=== PATIENT | female | born 1955 | race Caucasian/White ===

== ENCOUNTER 2020-08-30 13:11 | Observation (INO) | payer OTHER ==
[2020-08-30] MEDS ORDERED: Sodium Chloride 0.9% 1000 ML 1,000 ML IV SCH ×2 (13:45→15:15)
[2020-08-30 14:17] LABS: Absolute Neutrophil Ct (ANC) 4.21 (1.4-6.9); BASOPHIL % 0.4 % (0.0-0.4); Basophil (Absolute #) 0.03 (0-0.4); Eosinophil % 0.7 % (0.00-5.0); Eosinophil (Absolute #) 0.05 (0-0.5); Hematocrit 42.3 % (35-47); Hemoglobin 14.2 gm/dl (12.0-16.0); Lymphocyte (Absolute #) 2.05 (1.0-4.6); Lymphocytes % 28.8 % (24.0-44.0); Mean Corpuscular Hemoglobin 30.9 pg (26-32); Mean Corpuscular Hgb Concent. 33.6 g/dl (32-36); Mean Platelet Volume 9.7 fl (7.5-11.0); Monocyte (Absolute #) 0.77 (0.0-1.3); Monocytes % 10.8 % (0.0-12.0); Neutrophil % 59.3 % (36.0-66.0); Platelet Count 310 K/mm3 (150-450); Red Cell Distribution Width 12.4 % (11.5-14.0); White Blood Count 7.1 K/mm3 (4.0-10.5)
[2020-08-30 14:28] LABS: ALBUMIN 4.6 g/dL (3.5-5.0); ALKALINE PHOSPHATASE 98 U/L (38-126); ANION GAP 12.9 MEQ/L (5-15); BLOOD UREA NITROGEN 10 mg/dL (7-17); CHLORIDE 96 mmol/L (98-107); Carbon Dioxide 27 mmol/L (22-30); Creatinine 1 0.52 mg/dL (0.52-1.04); EST GLOMERULAR FILTRATION RATE > 60.0 ML/MIN; Glucose 161 mg/dL (74-106); MAGNESIUM 1.9 mg/dL (1.6-2.3); Potassium 3.6 mmol/L (3.5-5.1); SGOT/AST 28 U/L (14-36); SGPT/ALT 22 U/L (0-35); SODIUM 132 mmol/L (137-145); Total Protein 7.6 g/dL (6.3-8.2)
--- NOTE | 2020-08-30 14:28 | ERPHSYRPT ---
- History of Present Illness Time Seen by Provider: 08/30/20 13:25 Source: patient Exam Limitations: no limitations Patient Subjective Stated Complaint: Confusion Triage Nursing Assessment: Patient ambulated back to ED and transferred self to bed. Patient A+O X3. Patient's skin pink, warm and dry. Patient states around 12 her right eye started twitching then she became shaky. Patient stated she ate lunch and returned back to work and was having a hard time remebering things. Her co-workers noticed and brought her to ED. Patient states she is having trouble remembering things right now. Patient states she found a tick on her right side and thought she had got it out of skin. Patient has tick embedded in skin on right side. Patient denies dizziness, SOB or any pain. Blood sugar noted to be 165. Physician History: Patient is a 65-year-old female presents to our emergency department for evaluation. Patient states that she was at work. She felt her right eye twitch. Patient went to have lunch. No difficulties eating or swallowing. Upon arrival patient states she was having trouble with her memory. Patient states she was having trouble finding words. She had no numbness tingling or weakness. No change in gait. Her speech was not slurred. No facial weakness or drooping. Patient does note that she recently found a tick on her right flank. The tick was removed. Patient concerned that her symptoms may be related to her tick. No chest pain or shortness of breath. No nausea vomiting or diaphoresis. Patient otherwise asymptomatic. Patient ambulatory to our ED. No change in patient's gait. Patient otherwise healthy. She has had her thyroid checked on the past and states that that was normal. Patient voices no other complaints or concerns at this time. Patient states her symptoms have now resolved. Timing/Duration: today Severity: mild Modifying Factors: Improves With: nothing Associated Symptoms: denies symptoms Allergies/Adverse Reactions: No Known Drug Allergies Allergy (Unverified 08/30/20 13:19) Home Medications: Lisinopril/Hydrochlorothiazide [Lisinopril-Hctz 10-12.5 mg Tab] 1 each PO DAILY 08/30/20 [History] Multivitamin 1 each PO BID 08/30/20 [History] Hx Influenza Vaccination/Date Given: Yes Hx Pneumococcal Vaccination/Date Given: No Immunizations Up to Date: Yes Travel Risk - International Travel Have you traveled outside of the country in past 3 weeks: No - Coronavirus Screening Are you exhibiting any of the following symptoms?: No Close contact with a COVID-19 positive Pt in past 14-21 Days: No - Vaccine Status Have you recieved a Covid-19 vaccination: Yes Loader Demolder: Pfizer - Vaccination Dates Date of 2cond Vaccination (if applicable): 06/20/2020 - Review of Systems Constitutional: No Symptoms, No Fever, No Chills Eyes: No Symptoms Ears, Nose, & Throat: No Symptoms Respiratory: No Symptoms, No Cough, No Dyspnea Cardiac: No Symptoms, No Chest Pain, No Edema, No Syncope Abdominal/Gastrointestinal: No Symptoms, No Abdominal Pain, No Nausea, No Vomiting, No Diarrhea Genitourinary Symptoms: No Symptoms, No Dysuria Musculoskeletal: No Symptoms, No Back Pain, No Neck Pain Skin: No Symptoms, No Rash Neurological: No Symptoms, No Dizziness, No Focal Weakness, No Sensory Changes Psychological: No Symptoms Endocrine: No Symptoms Hematologic/Lymphatic: No Symptoms Immunological/Allergic: No Symptoms All Other Systems: Reviewed and Negative - Past Medical History Pertinent Past Medical History: Yes Neurological History: No Pertinent History ENT History: No Pertinent History Cardiac History: Hypertension Respiratory History: No Pertinent History Endocrine Medical History: No Pertinent History Musculoskeletal History: No Pertinent History GI Medical History: No Pertinent History History: No Pertinent History Psycho-Social History: No Pertinent History Female Reproductive Disorders: No Pertinent History - Past Surgical History Past Surgical History: Yes Neuro Surgical History: No Pertinent History Cardiac: No Pertinent History Respiratory: No Pertinent History Gastrointestinal: No Pertinent History Genitourinary: No Pertinent History Musculoskeletal: No Pertinent History Female Surgical History: No Pertinent History - Social History Smoking Status: Never smoker Exposure to second hand smoke: No Drug Use: none Patient Lives Alone: No - Female History Hx Now: No - Nursing Vital Signs Nursing Vital Signs: Initial Vital Signs Temperature 98.1 F 08/30/20 13:22 Pulse Rate 122 H 08/30/20 13:22 Respiratory Rate 18 08/30/20 13:22 Blood Pressure 165/68 08/30/20 13:22 O2 Sat by Pulse Oximetry 100 08/30/20 13:22 Pain Scale Pain Intensity 0 - Physical Exam General Appearance: no apparent distress, alert Eye Exam: PERRL/EOMI, eyes nml inspection Ears, Nose, Throat Exam: normal ENT inspection, TMs normal, pharynx normal, moist mucous membranes Neck Exam: normal inspection, non-tender, supple, full range of motion Respiratory Exam: normal breath sounds, lungs clear, No respiratory distress Cardiovascular Exam: regular rate/rhythm, normal heart sounds, normal peripheral pulses Gastrointestinal/Abdomen Exam: soft, normal bowel sounds, No tenderness, No mass Back Exam: normal inspection, normal range of motion, No CVA tenderness, No vertebral tenderness Extremity Exam: normal inspection, normal range of motion, pelvis stable Neurologic Exam: alert, oriented x 3, cooperative, normal mood/affect, nml cerebellar function, nml station & gait, sensation nml, No motor deficits, No intoxicated appearance, No facial droop, No slurred speech, No aphasia, No dysarthria, No abnormal gait Skin Exam: normal color, warm, dry, No rash Lymphatic Exam: No adenopathy SpO2 Interpretation: normal SpO2: 98 O2 Delivery: Room Air - Course Nursing assessment & vital signs reviewed: Yes EKG Interpreted by Me: RATE (130), Sinus Tach, NORMAL AXIS, NORMAL INTERVALS - CT Exams Head CT Interpretation: Tele-radiologist Report (No acute intracranial abnormality.) Ordered Tests: Medication Summary Discontinued Medications Generic Name Dose Route Start Last Admin Trade Name Freq PRN Reason Stop Dose Admin Aspirin 324 mg 08/30/20 15:07 08/30/20 15:13 Baby Aspirin 81 Mg Chew PO 08/30/20 15:08 324 mg STAT ONE Administration Hydrochlorothiazide 12.5 mg 08/31/20 10:00 08/31/20 11:13 Hydrodiuril 25 Mg PO 09/30/20 09:59 12.5 mg DAILY АНДРЕЙ Administration Sodium Chloride 1,000 mls @ 50 mls/hr 08/30/20 13:45 08/30/20 14:01 Sodium Chloride 0.9% 1000 Ml IV 09/29/20 13:44 50 mls/hr .Q20H АНДРЕЙ Administration Sodium Chloride 1,000 mls @ 75 mls/hr 08/30/20 15:15 08/30/20 19:42 Sodium Chloride 0.9% 1000 Ml IV 09/29/20 15:14 Not Given .[id number] АНДРЕЙ Sodium Chloride 1,000 mls @ 75 mls/hr 08/30/20 17:50 08/31/20 05:31 Sodium Chloride 0.9% 1000 Ml IV 09/29/20 17:49 75 mls/hr .[id number] АНДРЕЙ Administration Lisinopril 10 mg 08/31/20 10:00 08/31/20 11:18 Zestril 10 Mg PO 09/30/20 09:59 10 mg DAILY АНДРЕЙ Administration Multivitamins Therapeutic 1 tab 08/31/20 10:00 08/31/20 11:18 Theragran Multivitamin PO 09/30/20 09:59 1 tab DAILY АНДРЕЙ Administration Lab/Rad Data: Laboratory Result Diagrams 08/30/20 13:30 08/30/20 13:30 Laboratory Results 08/30/20 08/30/20 08/30/20 Range/Units 16:54 15:54 13:30 WBC (4.0-10.5) K/mm3 RBC (4.1-5.4) M/mm3 Hgb (12.0-16.0) gm/dl Hct (35-47) % MCV (78-100) fl MCH (26-32) pg MCHC (32-36) g/dl RDW (11.5-14.0) % Plt Count (150-450) K/mm3 MPV (7.5-11.0) fl Gran % (36.0-66.0) % Eos # (Auto) (0-0.5) Absolute Lymphs (auto) (1.0-4.6) Absolute Monos (auto) (0.0-1.3) Lymphocytes % (24.0-44.0) % Monocytes % (0.0-12.0) % Eosinophils % (0.00-5.0) % Basophils % (0.0-0.4) % Absolute Granulocytes (1.4-6.9) Basophils # (0-0.4) Sodium (137-145) mmol/L Potassium (3.5-5.1) mmol/L Chloride (98-107) mmol/L Carbon Dioxide (22-30) mmol/L Anion Gap (5-15) MEQ/L BUN (7-17) mg/dL Creatinine (0.52-1.04) mg/dL Estimated GFR ML/MIN Glucose (74-106) mg/dL POC Glucometer (74 to 106) mg/dL Calcium (8.4-10.2) mg/dL Magnesium (1.6-2.3) mg/dL Total Bilirubin (0.2-1.3) mg/dL AST (14-36) U/L ALT (0-35) U/L Alkaline Phosphatase (38-126) U/L Troponin I < 0.012 < 0.012 (0.000-0.034) ng/mL Serum Total Protein (6.3-8.2) g/dL Albumin (3.5-5.0) g/dL Influenza Type A Ag NEGATIVE (NEGATIVE) Influenza Type B Ag NEGATIVE (NEGATIVE) RSV (PCR) NEGATIVE (Negative) SARS-CoV-2 (PCR) NEGATIVE (NEGATIVE) 08/30/20 08/30/20 08/30/20 Range/Units 13:30 13:30 13:30 WBC 7.1 (4.0-10.5) K/mm3 RBC 4.60 (4.1-5.4) M/mm3 Hgb 14.2 (12.0-16.0) gm/dl Hct 42.3 (35-47) % MCV 92.0 (78-100) fl MCH 30.9 (26-32) pg MCHC 33.6 (32-36) g/dl RDW 12.4 (11.5-14.0) % Plt Count 310 (150-450) K/mm3 MPV 9.7 (7.5-11.0) fl Gran % 59.3 (36.0-66.0) % Eos # (Auto) 0.05 (0-0.5) Absolute Lymphs (auto) 2.05 (1.0-4.6) Absolute Monos (auto) 0.77 (0.0-1.3) Lymphocytes % 28.8 (24.0-44.0) % Monocytes % 10.8 (0.0-12.0) % Eosinophils % 0.7 (0.00-5.0) % Basophils % 0.4 (0.0-0.4) % Absolute Granulocytes 4.21 (1.4-6.9) Basophils # 0.03 (0-0.4) Sodium 132 L (137-145) mmol/L Potassium 3.6 (3.5-5.1) mmol/L Chloride 96 L (98-107) mmol/L Carbon Dioxide 27 (22-30) mmol/L Anion Gap 12.9 (5-15) MEQ/L BUN 10 (7-17) mg/dL Creatinine 0.52 (0.52-1.04) mg/dL Estimated GFR > 60.0 ML/MIN Glucose 161 H (74-106) mg/dL POC Glucometer 159 H (74 to 106) mg/dL Calcium 10.0 (8.4-10.2) mg/dL Magnesium 1.9 (1.6-2.3) mg/dL Total Bilirubin 0.60 (0.2-1.3) mg/dL AST 28 (14-36) U/L ALT 22 (0-35) U/L Alkaline Phosphatase 98 (38-126) U/L Troponin I (0.000-0.034) ng/mL Serum Total Protein 7.6 (6.3-8.2) g/dL Albumin 4.6 (3.5-5.0) g/dL Influenza Type A Ag (NEGATIVE) Influenza Type B Ag (NEGATIVE) RSV (PCR) (Negative) SARS-CoV-2 (PCR) (NEGATIVE) 08/30/20 Range/Units 08:00 WBC (4.0-10.5) K/mm3 RBC (4.1-5.4) M/mm3 Hgb (12.0-16.0) gm/dl Hct (35-47) % MCV (78-100) fl MCH (26-32) pg MCHC (32-36) g/dl RDW (11.5-14.0) % Plt Count (150-450) K/mm3 MPV (7.5-11.0) fl Gran % (36.0-66.0) % Eos # (Auto) (0-0.5) Absolute Lymphs (auto) (1.0-4.6) Absolute Monos (auto) (0.0-1.3) Lymphocytes % (24.0-44.0) % Monocytes % (0.0-12.0) % Eosinophils % (0.00-5.0) % Basophils % (0.0-0.4) % Absolute Granulocytes (1.4-6.9) Basophils # (0-0.4) Sodium (137-145) mmol/L Potassium (3.5-5.1) mmol/L Chloride (98-107) mmol/L Carbon Dioxide (22-30) mmol/L Anion Gap (5-15) MEQ/L BUN (7-17) mg/dL Creatinine (0.52-1.04) mg/dL Estimated GFR ML/MIN Glucose (74-106) mg/dL POC Glucometer (74 to 106) mg/dL Calcium (8.4-10.2) mg/dL Magnesium (1.6-2.3) mg/dL Total Bilirubin (0.2-1.3) mg/dL AST (14-36) U/L ALT (0-35) U/L Alkaline Phosphatase (38-126) U/L Troponin I < 0.012 (0.000-0.034) ng/mL Serum Total Protein (6.3-8.2) g/dL Albumin (3.5-5.0) g/dL Influenza Type A Ag (NEGATIVE) Influenza Type B Ag (NEGATIVE) RSV (PCR) (Negative) SARS-CoV-2 (PCR) (NEGATIVE) - Progress Progress: improved Progress Note: Patient is 65-year-old female presents to our with possible TIA. Initial work- up negative. CT head negative. Patient also mentions that she has observed a tick bite. In light of her symptomology Case discussed with Dr. Joyce who accepts admission to observation for further work-up. MRI/MRA ordered for the morning. Aspirin IV fluids administered. Plan of care discussed with patient. She agrees to admission to [facility] for further evaluation and treatment. 09/02/20 04:57 09/02/20 04:59 Discussed with : Bryan Will see patient in: hospital (observation) Counseled pt/family regarding: lab results, diagnosis, rad results - Departure Departure Disposition: Observation Clinical Impression: TIA (transient ischemic attack), Hyponatremia Tick bite Qualifiers: Encounter type: initial encounter Qualified Code(s): W57.XXXA - Bitten or stung by nonvenomous insect and other nonvenomous arthropods, initial encounter Condition: Stable Critical Care Time: No
--- NOTE | 2020-08-30 14:49 | XRAY ---
Exam: CT of the head without IV contrast from 08/30/2020. CTDI: 53.92 mGy Comparison: None. Indication: 65-year-old female with memory loss, confusion. Right eye twitching. Technique: Non-IV contrast axial images were obtained through the brain. Reconstructed coronal and sagittal images were created and reviewed. Findings: The ventricles appear of normal size and configuration. No focal mass effect or midline shift is seen. No acute intracranial bleed or abnormal extra-axial fluid collection is seen. The siddiqui matter-white matter interfaces appear unremarkable. No low attenuation infarct is seen within a major cerebral or cerebellar artery distribution. There is mild prominence of the cortical sulci within the upper cerebral convexities. I believe this is essentially unremarkable for the patient's stated age. The calvarium of the skull appears intact. The visualized sinuses appear grossly clear. A small linear septation is seen within the posterior aspect of each maxillary sinus. No air-fluid levels are seen. The mastoid air cells are clear without effusion. The middle ear cavities appear grossly unremarkable. No gross abnormality of the orbits is seen. Impression: 1. No acute intracranial abnormality is seen. The brain appears unremarkable for the patient's stated age.
[2020-08-30] MEDS ORDERED: BABY ASPIRIN 81 MG CHEW PO ONE (15:07)
[2020-08-30 17:04] LABS: INFLUENZA A NEGATIVE (NEGATIVE); INFLUENZA B NEGATIVE (NEGATIVE); RESPIRATORY SYNCTIAL VIRUS NEGATIVE (Negative)
[2020-08-30] MEDS: Sodium Chloride 0.9% 1000 ML 1,000 ML IV SCH (19:42)
--- NOTE | 2020-08-30 20:27 | PCM.HP ---
History of Present Illness - Chief Complaint Chief Complaint: weaknessfor 1day History of Present Illness: is a 65 year old female.presents to our emergency department for evaluation. Patient states that she was at work. She felt her right eye twitch. Patient went to have lunch. No difficulties eating or swallowing. Upon arrival patient states she was having trouble with her memory. Patient states she was having trouble finding words. She had no numbness tingling or weakness. No change in gait. Her speech was not slurred. No facial weakness or drooping. Patient does note that she recently found a tick on her right flank. The tick was removed. Patient concerned that her symptoms may be related to her tick. No chest pain or shortness of breath. No nausea vomiting or diaphoresis. Patient otherwise asymptomatic. Patient ambulatory to our ED. No change in patient's gait. Patient otherwise healthy. She has had her thyroid checked on the past and states that that was normal. Patient voices no other complaints or concerns at this time. Patient states her symptoms have now resolved. - Review of Systems Constitutional: Weakness, No Fever, No Chills Eyes: No Symptoms Ears, Nose, & Throat: No Symptoms Respiratory: No Cough, No Short Of Breath Cardiac: No Chest Pain, No Edema, No Syncope Abdominal/Gastrointestinal: No Abdominal Pain, No Nausea, No Vomiting, No Diarrhea Genitourinary Symptoms: No Dysuria Musculoskeletal: No Back Pain, No Neck Pain Skin: No Rash Neurological: No Dizziness, No Focal Weakness, No Sensory Changes Psychological: No Symptoms Endocrine: No Symptoms Hematologic/Lymphatic: No Symptoms Immunological/Allergic: No Symptoms Medications & Allergies Home Medications: Home Medication List Lisinopril/Hydrochlorothiazide [Lisinopril-Hctz 10-12.5 mg Tab] 1 each PO DAILY 08/30/20 [History Confirmed 08/30/20] Multivitamin 1 each PO BID 08/30/20 [History Confirmed 08/30/20] Allergies/Adverse Reactions: Allergies Allergy/AdvReac Type Severity Reaction Status Date / Time No Known Drug Allergies Allergy Unverified 08/30/20 13:19 - Past Medical History Past Medical History: Yes Neurological History: No Pertinent History ENT History: No Pertinent History Cardiac History: Hypertension Respiratory History: No Pertinent History Endocrine Medical History: No Pertinent History Musculoskelatal History: Arthritis GI Medical History: No Pertinent History History: No Pertinent History Pyscho-Social History: No Pertinent History Reproductive Disorders: No Pertinent History - Female History Are you now?: No - Past Surgical History Past Surgical History: Yes Neuro Surgical History: No Pertinent History Cardiac History: No Pertinent History Respiratory Surgery: No Pertinent History GI Surgical History: No Pertinent History Genitourinary Surgical Hx: No Pertinent History Musculskeletal Surgical Hx: No Pertinent History Female Surgical History: Section, Tubal Ligation - Social History Smoking Status: Never smoker Exposure to second hand smoke: Yes (as a child) Alcohol: Daily Drug Use: none - Physical Exam Vital Signs: Vital Signs - 24 hr Temp Pulse Resp BP Pulse Ox 08/30/20 18:16 97 08/30/20 18:08 97.4 F 84 16 168/75 100 08/30/20 17:50 97.4 F 84 16 168/75 100 08/30/20 17:15 86 23 151/82 97 08/30/20 16:15 78 18 145/80 98 08/30/20 15:05 98 08/30/20 14:16 113 H 21 155/58 98 08/30/20 13:50 95 08/30/20 13:22 98.1 F 122 H 18 165/68 100 General Appearance: no apparent distress, alert Neurologic Exam: alert, oriented x 3, cooperative, normal mood/affect, nml cerebellar function, nml station & gait, sensation nml, No motor deficits Eye Exam: PERRL/EOMI, eyes nml inspection Ears, Nose, Throat Exam: normal ENT inspection, TMs normal, pharynx normal, moist mucous membranes Neck Exam: normal inspection, non-tender, supple, full range of motion Respiratory Exam: normal breath sounds, lungs clear, No respiratory distress Cardiovascular Exam: regular rate/rhythm, normal heart sounds, normal peripheral pulses Gastrointestinal/Abdomen Exam: soft, normal bowel sounds, No tenderness, No mass Back Exam: normal inspection, normal range of motion, No CVA tenderness, No vertebral tenderness Extremity Exam: normal inspection, normal range of motion, pelvis stable Skin Exam: normal color, warm, dry, No rash Lymphatic Exam: No adenopathy Results - Labs Lab/Micro Results: Lab Results-Last 24 Hours 08/30/20 08/30/20 08/30/20 Range/Units 13:30 13:30 13:30 WBC 7.1 (4.0-10.5) K/mm3 RBC 4.60 (4.1-5.4) M/mm3 Hgb 14.2 (12.0-16.0) gm/dl Hct 42.3 (35-47) % MCV 92.0 (78-100) fl MCH 30.9 (26-32) pg MCHC 33.6 (32-36) g/dl RDW 12.4 (11.5-14.0) % Plt Count 310 (150-450) K/mm3 MPV 9.7 (7.5-11.0) fl Gran % 59.3 (36.0-66.0) % Eos # (Auto) 0.05 (0-0.5) Absolute Lymphs (auto) 2.05 (1.0-4.6) Absolute Monos (auto) 0.77 (0.0-1.3) Lymphocytes % 28.8 (24.0-44.0) % Monocytes % 10.8 (0.0-12.0) % Eosinophils % 0.7 (0.00-5.0) % Basophils % 0.4 (0.0-0.4) % Absolute Granulocytes 4.21 (1.4-6.9) Basophils # 0.03 (0-0.4) Sodium 132 L (137-145) mmol/L Potassium 3.6 (3.5-5.1) mmol/L Chloride 96 L (98-107) mmol/L Carbon Dioxide 27 (22-30) mmol/L Anion Gap 12.9 (5-15) MEQ/L BUN 10 (7-17) mg/dL Creatinine 0.52 (0.52-1.04) mg/dL Estimated GFR > 60.0 ML/MIN Glucose 161 H (74-106) mg/dL POC Glucometer 159 H (74 to 106) mg/dL Calcium 10.0 (8.4-10.2) mg/dL Magnesium 1.9 (1.6-2.3) mg/dL Total Bilirubin 0.60 (0.2-1.3) mg/dL AST 28 (14-36) U/L ALT 22 (0-35) U/L Alkaline Phosphatase 98 (38-126) U/L Troponin I (0.000-0.034) ng/mL Serum Total Protein 7.6 (6.3-8.2) g/dL Albumin 4.6 (3.5-5.0) g/dL Influenza Type A Ag (NEGATIVE) Influenza Type B Ag (NEGATIVE) RSV (PCR) (Negative) SARS-CoV-2 (PCR) (NEGATIVE) 08/30/20 08/30/20 08/30/20 Range/Units 13:30 15:54 16:54 WBC (4.0-10.5) K/mm3 RBC (4.1-5.4) M/mm3 Hgb (12.0-16.0) gm/dl Hct (35-47) % MCV (78-100) fl MCH (26-32) pg MCHC (32-36) g/dl RDW (11.5-14.0) % Plt Count (150-450) K/mm3 MPV (7.5-11.0) fl Gran % (36.0-66.0) % Eos # (Auto) (0-0.5) Absolute Lymphs (auto) (1.0-4.6) Absolute Monos (auto) (0.0-1.3) Lymphocytes % (24.0-44.0) % Monocytes % (0.0-12.0) % Eosinophils % (0.00-5.0) % Basophils % (0.0-0.4) % Absolute Granulocytes (1.4-6.9) Basophils # (0-0.4) Sodium (137-145) mmol/L Potassium (3.5-5.1) mmol/L Chloride (98-107) mmol/L Carbon Dioxide (22-30) mmol/L Anion Gap (5-15) MEQ/L BUN (7-17) mg/dL Creatinine (0.52-1.04) mg/dL Estimated GFR ML/MIN Glucose (74-106) mg/dL POC Glucometer (74 to 106) mg/dL Calcium (8.4-10.2) mg/dL Magnesium (1.6-2.3) mg/dL Total Bilirubin (0.2-1.3) mg/dL AST (14-36) U/L ALT (0-35) U/L Alkaline Phosphatase (38-126) U/L Troponin I < 0.012 < 0.012 (0.000-0.034) ng/mL Serum Total Protein (6.3-8.2) g/dL Albumin (3.5-5.0) g/dL Influenza Type A Ag NEGATIVE (NEGATIVE) Influenza Type B Ag NEGATIVE (NEGATIVE) RSV (PCR) NEGATIVE (Negative) SARS-CoV-2 (PCR) NEGATIVE (NEGATIVE) - Radiology Impressions Radiology Exams & Impressions: Radiology Procedures Category Date Time Status HEAD WITHOUT CONTRAST [CT] Stat Exams 08/30/20 13:21 Completed MRA BRAIN WITHOUT CONTRAST [MRI] Routine Exams 08/31/20 08:00 Ordered MRI BRAIN W/O CONTRAST [MRI] Routine Exams 08/31/20 08:[address]/HEAD WITHOUT CONTRAST Exam: CT of the head without IV contrast from 08/30/2020. CTDI: 53.92 mGy Comparison: None. Indication: 65-year-old female with memory loss, confusion. Right eye twitching. Technique: Non-IV contrast axial images were obtained through the brain. Reconstructed coronal and sagittal images were created and reviewed. Findings: The ventricles appear of normal size and configuration. No focal mass effect or midline shift is seen. No acute intracranial bleed or abnormal extra-axial fluid collection is seen. The siddiqui matter-white matter interfaces appear unremarkable. No low attenuation infarct is seen within a major cerebral or cerebellar artery distribution. There is mild prominence of the cortical sulci within the upper cerebral convexities. I believe this is essentially unremarkable for the patient's stated age. The calvarium of the skull appears intact. The visualized sinuses appear grossly clear. A small linear septation is seen within the posterior aspect of each maxillary sinus. No air-fluid levels are seen. The mastoid air cells are clear without effusion. The middle ear cavities appear grossly unremarkable. No gross abnormality of the orbits is seen. Impression: 1. No acute intracranial abnormality is seen. The brain appears unremarkable for the patient's stated age. Assessment/Plan (1) TIA (transient ischemic attack) Current Visit: Yes Status: Acute Assessment & Plan: Chief Complaint Diagnosis TIA Allergies Allergy/AdvReac Type Severity Reaction Status Date / Time No Known Drug Allergies Allergy Unverified 08/30/20 13:19 Vital Signs (Last 24 hours) Temp Pulse Resp BP Pulse Ox 08/30/20 18:16 97 08/30/20 18:08 97.4 F 84 16 168/75 100 08/30/20 17:50 97.4 F 84 16 168/75 100 08/30/20 17:15 86 23 151/82 97 08/30/20 16:15 78 18 145/80 98 08/30/20 15:05 98 08/30/20 14:16 113 H 21 155/58 98 08/30/20 13:50 95 08/30/20 13:22 98.1 F 122 H 18 165/68 100 Home Medications Medication Instructions Recorded Confirmed Last Taken Type Lisinopril/Hydrochlorothiazide 1 each PO DAILY 08/30/20 08/30/20 08/30/20 07:00 History [Lisinopril-Hctz 10-12.5 mg Tab] Multivitamin 1 each PO BID 08/30/20 08/30/20 08/30/20 07:00 History Current Medications Generic Name Dose Route Start Last Admin Trade Name Freq PRN Reason Stop Dose Admin Sodium Chloride 1,000 mls @ 75 mls/hr 08/30/20 17:50 08/30/20 19:42 Sodium Chloride 0.9% 1000 Ml IV 09/29/20 17:49 Not Given .[id number] АНДРЕЙ Discontinued Medications Generic Name Dose Route Start Last Admin Trade Name Freq PRN Reason Stop Dose Admin Aspirin 324 mg 08/30/20 15:07 08/30/20 15:13 Baby Aspirin 81 Mg Chew PO 08/30/20 15:08 324 mg STAT ONE Administration Sodium Chloride 1,000 mls @ 50 mls/hr 08/30/20 13:45 08/30/20 14:01 Sodium Chloride 0.9% 1000 Ml IV 09/29/20 13:44 50 mls/hr .Q20H АНДРЕЙ Administration Sodium Chloride 1,000 mls @ 75 mls/hr 08/30/20 15:15 08/30/20 19:42 Sodium Chloride 0.9% 1000 Ml IV 09/29/20 15:14 Not Given .[id number] АНДРЕЙ Intake & Output (Last 24 hours) 08/28/20 08/29/20 08/30/20 08/31/20 11:59 11:59 11:59 11:59 Weight 60.9 kg Laboratory Results (Last 24 hours) 08/30/20 08/30/20 08/30/20 16:54 15:54 13:30 WBC RBC Hgb Hct MCV MCH MCHC RDW Plt Count MPV Gran % Eos # (Auto) Absolute Lymphs (auto) Absolute Monos (auto) Lymphocytes % Monocytes % Eosinophils % Basophils % Absolute Granulocytes Basophils # Sodium Potassium Chloride Carbon Dioxide Anion Gap BUN Creatinine Estimated GFR Glucose POC Glucometer Calcium Magnesium Total Bilirubin AST ALT Alkaline Phosphatase Troponin I < 0.012 < 0.012 Serum Total Protein Albumin Influenza Type A Ag NEGATIVE Influenza Type B Ag NEGATIVE RSV (PCR) NEGATIVE SARS-CoV-2 (PCR) NEGATIVE 08/30/20 08/30/20 08/30/20 13:30 13:30 13:30 WBC 7.1 RBC 4.60 Hgb 14.2 Hct 42.3 MCV 92.0 MCH 30.9 MCHC 33.6 RDW 12.4 Plt Count 310 MPV 9.7 Gran % 59.3 Eos # (Auto) 0.05 Absolute Lymphs (auto) 2.05 Absolute Monos (auto) 0.77 Lymphocytes % 28.8 Monocytes % 10.8 Eosinophils % 0.7 Basophils % 0.4 Absolute Granulocytes 4.21 Basophils # 0.03 Sodium 132 L Potassium 3.6 Chloride 96 L Carbon Dioxide 27 Anion Gap 12.9 BUN 10 Creatinine 0.52 Estimated GFR > 60.0 Glucose 161 H POC Glucometer 159 H Calcium 10.0 Magnesium 1.9 Total Bilirubin 0.60 AST 28 ALT 22 Alkaline Phosphatase 98 Troponin I Serum Total Protein 7.6 Albumin 4.6 Influenza Type A Ag Influenza Type B Ag RSV (PCR) SARS-CoV-2 (PCR) Orders (Last 24 hours) Category Date Time Status Bedrest with BRP/BSC ROUTINE Activity 08/30/20 17:50 Active Rn Rehabilitation STAT Care 08/30/20 13:43 Completed Code Status Order ROUTINE Care 08/30/20 17:50 Active EKG-ER Only STAT Care 08/30/20 13:43 Completed IV Care Q6H Care 08/30/20 17:50 Active IV Insertion STAT Care 08/30/20 13:[address] in Observation ROUTINE Care 08/30/20 17:50 Active Pulse Oximetry (ED) STAT Care 08/30/20 13:43 Completed Telemetry q6h Care 08/30/20 17:50 Active Heart-Healthy Diet Diet 08/30/20 Breakfast Active HEAD WITHOUT CONTRAST [CT] Stat Exams 08/30/20 13:21 Completed MRA BRAIN WITHOUT CONTRAST [MRI] Routine Exams 08/31/20 08:00 Ordered MRI BRAIN W/O CONTRAST [MRI] Routine Exams 08/31/20 08:00 Ordered CBC W DIFF AM.LAB Lab 08/31/20 04:00 Ordered CBC W DIFF Stat Lab 08/30/20 13:30 Completed CMP AM.LAB Lab 08/31/20 04:00 Ordered CMP Stat Lab 08/30/20 13:30 Completed MAGNESIUM Stat Lab 08/30/20 13:30 Completed POCT GLUCOSE Stat Lab 08/30/20 13:30 Completed TROPONIN Q3H Lab 08/30/20 08:00 Received TROPONIN Q3H Lab 08/30/20 13:30 Completed TROPONIN Q3H Lab 08/30/20 16:54 Completed TROPONIN Q3H Lab 08/30/20 22:45 Ordered TROPONIN Q3H Lab 08/31/20 01:45 Ordered Aspirin 81 gm Chew [Baby Aspirin 81 mg Chew] Med 08/30/20 15:07 Discontinued 324 mg PO STAT ONE NaCl 0.9% 1000 ml [Sodium Chloride 0.9% 1000 ML] 1,000 Med 08/30/20 13:45 Discontinued ml IV 50 mls/hr NaCl 0.9% 1000 ml [Sodium Chloride 0.9% 1000 ML] 1,000 Med 08/30/20 15:15 Discontinued ml IV 75 mls/hr NaCl 0.9% 1000 ml [Sodium Chloride 0.9% 1000 ML] 1,000 Med 08/30/20 17:50 Active ml IV 75 mls/hr Transfer Order Routine Transfer 08/30/20 Completed Code(s): G45.9 - TRANSIENT CEREBRAL ISCHEMIC ATTACK, UNSPECIFIED (2) Hyponatremia Current Visit: Yes Status: Acute Code(s): E87.1 - HYPO-OSMOLALITY AND HYPONATREMIA (3) Tick bite Current Visit: Yes Status: Acute Code(s): W57.XXXA - BIT/STUNG BY NONVENOM INSECT & OTH NONVENOM ARTHROPODS, INIT
[2020-08-31 04:45] VITALS: O2SAT 98
[2020-08-31 05:24] LABS: Absolute Neutrophil Ct (ANC) 3.57 (1.4-6.9); BASOPHIL % 0.5 % (0.0-0.4); Basophil (Absolute #) 0.03 (0-0.4); Eosinophil % 1.6 % (0.00-5.0); Eosinophil (Absolute #) 0.09 (0-0.5); Hematocrit 37.7 % (35-47); Hemoglobin 12.4 gm/dl (12.0-16.0); Lymphocyte (Absolute #) 1.43 (1.0-4.6); Lymphocytes % 24.8 % (24.0-44.0); Mean Cell Volume 94.3 fl (78-100); Mean Corpuscular Hgb Concent. 32.9 g/dl (32-36); Mean Platelet Volume 9.5 fl (7.5-11.0); Monocyte (Absolute #) 0.64 (0.0-1.3); Monocytes % 11.1 % (0.0-12.0); Platelet Count 260 K/mm3 (150-450); Red Cell Distribution Width 12.3 % (11.5-14.0); White Blood Count 5.8 K/mm3 (4.0-10.5)
[2020-08-31] MEDS: Sodium Chloride 0.9% 1000 ML 1,000 ML IV SCH (05:31)
[2020-08-31 05:56] LABS: ALBUMIN 3.5 g/dL (3.5-5.0); ALKALINE PHOSPHATASE 74 U/L (38-126); ANION GAP 10.4 MEQ/L (5-15); BLOOD UREA NITROGEN 11 mg/dL (7-17); CHLORIDE 104 mmol/L (98-107); Calcium 9.1 mg/dL (8.4-10.2); Carbon Dioxide 25 mmol/L (22-30); Creatinine 1 0.45 mg/dL (0.52-1.04); EST GLOMERULAR FILTRATION RATE > 60.0 ML/MIN; Glucose 89 mg/dL (74-106); Potassium 4.3 mmol/L (3.5-5.1); SGOT/AST 39 U/L (14-36); SGPT/ALT 19 U/L (0-35); SODIUM 135 mmol/L (137-145); Total Protein 6.1 g/dL (6.3-8.2)
--- NOTE | 2020-08-31 07:44 | PCM.NOTE ---
Date and Time: 08/31/20 0744 Subjective Assessment: doing better - Review of Systems Constitutional: No Fever, No Chills Eyes: No Symptoms Ears, Nose, & Throat: No Symptoms Respiratory: No Cough, No Short Of Breath Cardiac: No Chest Pain, No Edema, No Syncope Abdominal/Gastrointestinal: No Abdominal Pain, No Nausea, No Vomiting, No Diarrhea Genitourinary Symptoms: No Dysuria Musculoskeletal: No Back Pain, No Neck Pain Skin: No Rash Neurological: No Dizziness, No Focal Weakness, No Sensory Changes Psychological: No Symptoms Endocrine: No Symptoms Hematologic/Lymphatic: No Symptoms Immunological/Allergic: No Symptoms Objective Exam General Appearance: no apparent distress, alert Neurologic Exam: alert, oriented x 3, cooperative, normal mood/affect, nml cerebellar function, sensation nml, No motor deficits Skin Exam: normal color, warm, dry Eye Exam: PERRL, EOMI, eyes nml inspection Ears, Nose, Throat Exam: normal ENT inspection, pharynx normal, moist mucous membranes Neck Exam: normal inspection, non-tender, supple, full range of motion Respiratory Exam: normal breath sounds, lungs clear, No respiratory distress Cardiovascular Exam: regular rate/rhythm, normal heart sounds Gastrointestinal/Abdomen Exam: soft, No tenderness, No mass Extremity Exam: normal inspection, normal range of motion Back Exam: normal inspection, normal range of motion, No CVA tenderness, No vertebral tenderness Pelvic Exam: deferred Rectal Exam: deferred OBJECTIVE DATA Vital Signs: Vital Signs - 24 hr Temp Pulse Resp BP Pulse Ox 08/31/20 07:38 97.6 F 70 18 115/56 98 08/31/20 04:00 97.9 F 71 16 102/58 98 08/30/20 23:43 98.7 F 79 16 108/58 96 08/30/20 18:16 97 08/30/20 18:08 97.4 F 84 16 168/75 100 08/30/20 17:50 97.4 F 84 16 168/75 100 08/30/20 17:15 86 23 151/82 97 08/30/20 16:15 78 18 145/80 98 08/30/20 15:05 98 08/30/20 14:16 113 H 21 155/58 98 08/30/20 13:50 95 08/30/20 13:22 98.1 F 122 H 18 165/68 100 Pain Assessment - Last Documented Pain Intensity 0 Intake and Output: Intake & Output 08/28/20 08/29/20 08/30/20 08/31/20 11:59 11:59 11:59 11:59 Intake Total 965 Output Total 800 Balance 165 Weight 60.9 kg Lab Results: Lab Results-Last 24 Hours 08/30/20 08/30/20 08/30/20 Range/Units 08:00 13:30 13:30 WBC 7.1 (4.0-10.5) K/mm3 RBC 4.60 (4.1-5.4) M/mm3 Hgb 14.2 (12.0-16.0) gm/dl Hct 42.3 (35-47) % MCV 92.0 (78-100) fl MCH 30.9 (26-32) pg MCHC 33.6 (32-36) g/dl RDW 12.4 (11.5-14.0) % Plt Count 310 (150-450) K/mm3 MPV 9.7 (7.5-11.0) fl Gran % 59.3 (36.0-66.0) % Eos # (Auto) 0.05 (0-0.5) Absolute Lymphs (auto) 2.05 (1.0-4.6) Absolute Monos (auto) 0.77 (0.0-1.3) Lymphocytes % 28.8 (24.0-44.0) % Monocytes % 10.8 (0.0-12.0) % Eosinophils % 0.7 (0.00-5.0) % Basophils % 0.4 (0.0-0.4) % Absolute Granulocytes 4.21 (1.4-6.9) Basophils # 0.03 (0-0.4) Sodium (137-145) mmol/L Potassium (3.5-5.1) mmol/L Chloride (98-107) mmol/L Carbon Dioxide (22-30) mmol/L Anion Gap (5-15) MEQ/L BUN (7-17) mg/dL Creatinine (0.52-1.04) mg/dL Estimated GFR ML/MIN Glucose (74-106) mg/dL POC Glucometer 159 H (74 to 106) mg/dL Calcium (8.4-10.2) mg/dL Magnesium (1.6-2.3) mg/dL Total Bilirubin (0.2-1.3) mg/dL AST (14-36) U/L ALT (0-35) U/L Alkaline Phosphatase (38-126) U/L Troponin I < 0.012 (0.000-0.034) ng/mL Serum Total Protein (6.3-8.2) g/dL Albumin (3.5-5.0) g/dL Influenza Type A Ag (NEGATIVE) Influenza Type B Ag (NEGATIVE) RSV (PCR) (Negative) SARS-CoV-2 (PCR) (NEGATIVE) 08/30/20 08/30/20 08/30/20 Range/Units 13:30 13:30 15:54 WBC (4.0-10.5) K/mm3 RBC (4.1-5.4) M/mm3 Hgb (12.0-16.0) gm/dl Hct (35-47) % MCV (78-100) fl MCH (26-32) pg MCHC (32-36) g/dl RDW (11.5-14.0) % Plt Count (150-450) K/mm3 MPV (7.5-11.0) fl Gran % (36.0-66.0) % Eos # (Auto) (0-0.5) Absolute Lymphs (auto) (1.0-4.6) Absolute Monos (auto) (0.0-1.3) Lymphocytes % (24.0-44.0) % Monocytes % (0.0-12.0) % Eosinophils % (0.00-5.0) % Basophils % (0.0-0.4) % Absolute Granulocytes (1.4-6.9) Basophils # (0-0.4) Sodium 132 L (137-145) mmol/L Potassium 3.6 (3.5-5.1) mmol/L Chloride 96 L (98-107) mmol/L Carbon Dioxide 27 (22-30) mmol/L Anion Gap 12.9 (5-15) MEQ/L BUN 10 (7-17) mg/dL Creatinine 0.52 (0.52-1.04) mg/dL Estimated GFR > 60.0 ML/MIN Glucose 161 H (74-106) mg/dL POC Glucometer (74 to 106) mg/dL Calcium 10.0 (8.4-10.2) mg/dL Magnesium 1.9 (1.6-2.3) mg/dL Total Bilirubin 0.60 (0.2-1.3) mg/dL AST 28 (14-36) U/L ALT 22 (0-35) U/L Alkaline Phosphatase 98 (38-126) U/L Troponin I < 0.012 (0.000-0.034) ng/mL Serum Total Protein 7.6 (6.3-8.2) g/dL Albumin 4.6 (3.5-5.0) g/dL Influenza Type A Ag NEGATIVE (NEGATIVE) Influenza Type B Ag NEGATIVE (NEGATIVE) RSV (PCR) NEGATIVE (Negative) SARS-CoV-2 (PCR) NEGATIVE (NEGATIVE) 08/30/20 08/30/20 08/31/20 Range/Units 16:54 22:27 04:00 WBC 5.8 (4.0-10.5) K/mm3 RBC 4.00 L (4.1-5.4) M/mm3 Hgb 12.4 (12.0-16.0) gm/dl Hct 37.7 (35-47) % MCV 94.3 (78-100) fl MCH 31.0 (26-32) pg MCHC 32.9 (32-36) g/dl RDW 12.3 (11.5-14.0) % Plt Count 260 (150-450) K/mm3 MPV 9.5 (7.5-11.0) fl Gran % 62.0 (36.0-66.0) % Eos # (Auto) 0.09 (0-0.5) Absolute Lymphs (auto) 1.43 (1.0-4.6) Absolute Monos (auto) 0.64 (0.0-1.3) Lymphocytes % 24.8 (24.0-44.0) % Monocytes % 11.1 (0.0-12.0) % Eosinophils % 1.6 (0.00-5.0) % Basophils % 0.5 (0.0-0.4) % Absolute Granulocytes 3.57 (1.4-6.9) Basophils # 0.03 (0-0.4) Sodium (137-145) mmol/L Potassium (3.5-5.1) mmol/L Chloride (98-107) mmol/L Carbon Dioxide (22-30) mmol/L Anion Gap (5-15) MEQ/L BUN (7-17) mg/dL Creatinine (0.52-1.04) mg/dL Estimated GFR ML/MIN Glucose (74-106) mg/dL POC Glucometer (74 to 106) mg/dL Calcium (8.4-10.2) mg/dL Magnesium (1.6-2.3) mg/dL Total Bilirubin (0.2-1.3) mg/dL AST (14-36) U/L ALT (0-35) U/L Alkaline Phosphatase (38-126) U/L Troponin I < 0.012 < 0.012 (0.000-0.034) ng/mL Serum Total Protein (6.3-8.2) g/dL Albumin (3.5-5.0) g/dL Influenza Type A Ag (NEGATIVE) Influenza Type B Ag (NEGATIVE) RSV (PCR) (Negative) SARS-CoV-2 (PCR) (NEGATIVE) 08/31/20 Range/Units 04:00 WBC (4.0-10.5) K/mm3 RBC (4.1-5.4) M/mm3 Hgb (12.0-16.0) gm/dl Hct (35-47) % MCV (78-100) fl MCH (26-32) pg MCHC (32-36) g/dl RDW (11.5-14.0) % Plt Count (150-450) K/mm3 MPV (7.5-11.0) fl Gran % (36.0-66.0) % Eos # (Auto) (0-0.5) Absolute Lymphs (auto) (1.0-4.6) Absolute Monos (auto) (0.0-1.3) Lymphocytes % (24.0-44.0) % Monocytes % (0.0-12.0) % Eosinophils % (0.00-5.0) % Basophils % (0.0-0.4) % Absolute Granulocytes (1.4-6.9) Basophils # (0-0.4) Sodium 135 L (137-145) mmol/L Potassium 4.3 (3.5-5.1) mmol/L Chloride 104 (98-107) mmol/L Carbon Dioxide 25 (22-30) mmol/L Anion Gap 10.4 (5-15) MEQ/L BUN 11 (7-17) mg/dL Creatinine 0.45 L (0.52-1.04) mg/dL Estimated GFR > 60.0 ML/MIN Glucose 89 (74-106) mg/dL POC Glucometer (74 to 106) mg/dL Calcium 9.1 (8.4-10.2) mg/dL Magnesium (1.6-2.3) mg/dL Total Bilirubin 0.50 (0.2-1.3) mg/dL AST 39 H (14-36) U/L ALT 19 (0-35) U/L Alkaline Phosphatase 74 (38-126) U/L Troponin I (0.000-0.034) ng/mL Serum Total Protein 6.1 L (6.3-8.2) g/dL Albumin 3.5 (3.5-5.0) g/dL Influenza Type A Ag (NEGATIVE) Influenza Type B Ag (NEGATIVE) RSV (PCR) (Negative) SARS-CoV-2 (PCR) (NEGATIVE) Radiology Exams: Radiology Procedures Category Date Time Status HEAD WITHOUT CONTRAST [CT] Stat Exams 08/30/20 13:21 Completed MRA BRAIN WITHOUT CONTRAST [MRI] Routine Exams 08/31/20 08:00 Ordered MRI BRAIN W/O CONTRAST [MRI] Routine Exams 08/31/20 08:00 Ordered Assessment/Plan (1) Tick bite Current Visit: Yes Status: Acute Qualifiers: Encounter type: initial encounter Qualified Code(s): W57.XXXA - Bitten or stung by nonvenomous insect and other nonvenomous arthropods, initial encounter Code(s): W57.XXXA - BIT/STUNG BY NONVENOM INSECT & OTH NONVENOM ARTHROPODS, INIT (2) TIA (transient ischemic attack) Current Visit: Yes Status: Resolved Code(s): G45.9 - TRANSIENT CEREBRAL ISCHEMIC ATTACK, UNSPECIFIED (3) Hyponatremia Current Visit: Yes Status: Acute Code(s): E87.1 - HYPO-OSMOLALITY AND HYPONATREMIA
[2020-08-31] MEDS ORDERED: Zestril 10 MG PO SCH (10:00)
[2020-08-31] MEDS ORDERED: hydroDIURIL 25 MG PO SCH (10:00)
[2020-08-31] MEDS ORDERED: THERAGRAN MULTIVITAMIN PO SCH (10:00)
[2020-08-31 12:32] VITALS: BP 139/64; PULSE 65
--- NOTE | 2020-08-31 15:09 | XRAY ---
Exam: MRI of the brain without IV contrast from 08/31/2020. Comparison: CT of the head without IV contrast from 08/30/2020. Indication: 65-year-old female with confusion, memory loss, possible TIA. Technique: Axial, coronal, and sagittal MRI sequences were obtained through the brain without IV contrast, per protocol. Findings: The ventricles appear of normal size without hydrocephalus. No focal mass effect or midline shift is seen. There is no evidence of intracranial hemorrhage or extra-axial fluid collection. A few scattered bilateral periventricular and subcortical foci of increased signal are seen on the T2 FLAIR images, likely due to mild chronic small vessel ischemic changes within the white matter. The diffusion weighted images reveal no focal areas of restricted diffusion to suggest an acute or subacute infarct. The cortical sulci and basilar cisterns appear within normal limits for age. The visualized paranasal sinuses and mastoids appear unremarkable. The seventh and eighth cranial nerve complexes appear grossly unremarkable. The orbits appear grossly unremarkable. Impression: 1. A few scattered bilateral periventricular and subcortical foci of increased T2 FLAIR signal are seen suggestive of chronic small vessel ischemic white matter disease. An acute or subacute infarct is not seen on the diffusion-weighted images. 2. Otherwise, the MRI of the brain without IV contrast appears essentially unremarkable.
--- NOTE | 2020-08-31 15:19 | XRAY ---
Exam: MRA of the brain without IV contrast from 08/31/2020. Comparison: None. Indication: 65-year-old female with confusion, memory loss, possible TIA. Technique: Axial 3-D [id number] MRA images were obtained without IV contrast, per protocol. Reconstructed projection images were obtained as well. Findings: Both distal internal carotid arteries appear unremarkable. I see no evidence of aneurysm within the [place]. The visualized anterior cerebral and middle cerebral arteries appear unremarkable. The posterior cerebral arteries appear unremarkable. The basilar artery and major arterial vessels of the cerebellum reveal no significant abnormality. Specifically, no filling defects or obstruction is seen. Impression: 1. No significant abnormality is seen on the MRA of the brain. Specifically, the [place] and major branching arteries reveal no aneurysm or occlusion/filling defects.
--- NOTE | 2020-08-31 15:51 | PCM.DS ---
Discharge Summary Date of Admission: 08/30/20 17:42 Admitting Physician: PASQUALE ESPINOZA Primary Care Provider: JOSELUIS DOVE Allergies Allergies No Known Drug Allergies Allergy (Unverified 08/30/20 13:19) Hospital Summary - Hospital Course Hospital Course: Chief Complaint Diagnosis weaknessfor 1day Allergies Allergy/AdvReac Type Severity Reaction Status Date / Time No Known Drug Allergies Allergy Unverified 08/30/20 13:19 Vital Signs (Last 24 hours) Temp Pulse Resp BP Pulse Ox 08/31/20 12:00 98.3 F 65 18 139/64 98 08/31/20 07:38 97.6 F 70 18 115/56 98 08/31/20 04:00 97.9 F 71 16 102/58 98 08/30/20 23:43 98.7 F 79 16 108/58 96 08/30/20 18:16 97 08/30/20 18:08 97.4 F 84 16 168/75 100 08/30/20 17:50 97.4 F 84 16 168/75 100 08/30/20 17:15 86 23 151/82 97 08/30/20 16:15 78 18 145/80 98 Home Medications Medication Instructions Recorded Confirmed Last Taken Type Lisinopril/Hydrochlorothiazide 1 each PO DAILY 08/30/20 08/30/20 08/30/20 07:00 History [Lisinopril-Hctz 10-12.5 mg Tab] Multivitamin 1 each PO BID 08/30/20 08/30/20 08/30/20 07:00 History Current Medications Generic Name Dose Route Start Last Admin Trade Name Markelq PRN Reason Stop Dose Admin Hydrochlorothiazide 12.5 mg 08/31/20 10:00 08/31/20 11:13 Hydrodiuril 25 Mg PO 09/30/20 09:59 12.5 mg DAILY АНДРЕЙ Administration Sodium Chloride 1,000 mls @ 75 mls/hr 08/30/20 17:50 08/31/20 05:31 Sodium Chloride 0.9% 1000 Ml IV 09/29/20 17:49 75 mls/hr .[id number] АНДРЕЙ Administration Lisinopril 10 mg 08/31/20 10:00 08/31/20 11:18 Zestril 10 Mg PO 09/30/20 09:59 10 mg DAILY АНДРЕЙ Administration Multivitamins Therapeutic 1 tab 08/31/20 10:00 08/31/20 11:18 Theragran Multivitamin PO 09/30/20 09:59 1 tab DAILY АНДРЕЙ Administration Discontinued Medications Generic Name Dose Route Start Last Admin Trade Name Anna PRN Reason Stop Dose Admin Aspirin 324 mg 08/30/20 15:07 08/30/20 15:13 Baby Aspirin 81 Mg Chew PO 08/30/20 15:08 324 mg STAT ONE Administration Sodium Chloride 1,000 mls @ 50 mls/hr 08/30/20 13:45 08/30/20 14:01 Sodium Chloride 0.9% 1000 Ml IV 09/29/20 13:44 50 mls/hr .Q20H АНДРЕЙ Administration Sodium Chloride 1,000 mls @ 75 mls/hr 08/30/20 15:15 08/30/20 19:42 Sodium Chloride 0.9% 1000 Ml IV 09/29/20 15:14 Not Given .[id number] АНДРЕЙ Intake & Output (Last 24 hours) 08/29/20 08/30/20 08/31/20 09/01/20 11:59 11:59 11:59 11:59 Intake Total 965 Output Total 800 Balance 165 Weight 60.9 kg Laboratory Results (Last 24 hours) 08/31/20 08/31/20 08/30/20 04:00 04:00 22:27 WBC 5.8 RBC 4.00 L Hgb 12.4 Hct 37.7 MCV 94.3 MCH 31.0 MCHC 32.9 RDW 12.3 Plt Count 260 MPV 9.5 Gran % 62.0 Eos # (Auto) 0.09 Absolute Lymphs (auto) 1.43 Absolute Monos (auto) 0.64 Lymphocytes % 24.8 Monocytes % 11.1 Eosinophils % 1.6 Basophils % 0.5 Absolute Granulocytes 3.57 Basophils # 0.03 Sodium 135 L Potassium 4.3 Chloride 104 Carbon Dioxide 25 Anion Gap 10.4 BUN 11 Creatinine 0.45 L Estimated GFR > 60.0 Glucose 89 Calcium 9.1 Total Bilirubin 0.50 AST 39 H ALT 19 Alkaline Phosphatase 74 Troponin I < 0.012 Serum Total Protein 6.1 L Albumin 3.5 Influenza Type A Ag Influenza Type B Ag RSV (PCR) SARS-CoV-2 (PCR) 08/30/20 08/30/20 08/30/20 16:54 15:54 08:00 WBC RBC Hgb Hct MCV MCH MCHC RDW Plt Count MPV Gran % Eos # (Auto) Absolute Lymphs (auto) Absolute Monos (auto) Lymphocytes % Monocytes % Eosinophils % Basophils % Absolute Granulocytes Basophils # Sodium Potassium Chloride Carbon Dioxide Anion Gap BUN Creatinine Estimated GFR Glucose Calcium Total Bilirubin AST ALT Alkaline Phosphatase Troponin I < 0.012 < 0.012 Serum Total Protein Albumin Influenza Type A Ag NEGATIVE Influenza Type B Ag NEGATIVE RSV (PCR) NEGATIVE SARS-CoV-2 (PCR) NEGATIVE Orders (Last 24 hours) Category Date Time Status Bedrest with BRP/BSC ROUTINE Activity 08/30/20 17:50 Active Code Status Order ROUTINE Care 08/30/20 17:50 Active IV Care Q6H Care 08/30/20 17:[address] in Observation ROUTINE Care 08/30/20 17:50 Active Telemetry q6h Care 08/30/20 17:50 Active Discharge Routine Discharge 08/31/20 Ordered Discharge/Telephone Order Routine Discharge 08/31/20 Active MRA BRAIN WITHOUT CONTRAST [MRI] Routine Exams 08/31/20 08:00 Completed MRI BRAIN W/O CONTRAST [MRI] Routine Exams 08/31/20 08:00 Completed CBC W DIFF AM.LAB Lab 08/31/20 04:00 Completed CMP AM.LAB Lab 08/31/20 04:00 Completed TROPONIN Q3H Lab 08/30/20 16:54 Completed TROPONIN Q3H Lab 08/30/20 22:27 Completed Aspirin 81 gm Chew [Baby Aspirin 81 mg Chew] Med 08/30/20 15:07 Discontinued 324 mg PO STAT ONE Hydrochlorothiazide 25 mg [hydroDIURIL 25 MG] Med 08/31/20 10:00 Active 12.5 mg PO DAILY Lisinopril 10 mg [Zestril 10 MG] Med 08/31/20 10:00 Active 10 mg PO DAILY Multivitamins,Therapeutic Tab* [Theragran Multivitamin* Med 08/31/20 10:00 Active ] 1 tab PO DAILY NaCl 0.9% 1000 ml [Sodium Chloride 0.9% 1000 ML] 1,000 Med 08/30/20 15:15 Discontinued ml IV 75 mls/hr NaCl 0.9% 1000 ml [Sodium Chloride 0.9% 1000 ML] 1,000 Med 08/30/20 17:50 Active ml IV 75 mls/hr Patient Care Notes (Last 24 hours) 08/31/20 14:55 Nursing Note by Hanna Lantigua Pt returned from radiology at approximately 1420. Pt c/o headache rating it a 3. Lunch tray re-ordered. Pt states she will try eating to see if it helps. Initialized on 08/31/20 14:55 - END OF NOTE 08/31/20 13:36 Nursing Note by Hanna Lantigua Pt to radiology at this time for MRI. Initialized on 08/31/20 13:36 - END OF NOTE - Vitals & Intake/Output Vital Signs: Vital Signs Temperature 98.3 F 08/31/20 12:00 Pulse Rate 65 08/31/20 12:00 Respiratory Rate 18 08/31/20 12:00 Blood Pressure 139/64 08/31/20 12:00 O2 Sat by Pulse Oximetry 98 08/31/20 12:00 Intake & Output: Intake & Output 08/29/20 08/30/20 08/31/20 09/01/20 11:59 11:59 11:59 11:59 Intake Total 965 Output Total 800 Balance 165 Weight 60.9 kg - Lab Result Diagrams: 08/31/20 04:00 08/31/20 04:00 Lab Results-Last 24 Hrs: Lab Results-Last 24 Hours 08/30/20 08/30/20 08/30/20 Range/Units 08:00 15:54 16:54 WBC (4.0-10.5) K/mm3 RBC (4.1-5.4) M/mm3 Hgb (12.0-16.0) gm/dl Hct (35-47) % MCV (78-100) fl MCH (26-32) pg MCHC (32-36) g/dl RDW (11.5-14.0) % Plt Count (150-450) K/mm3 MPV (7.5-11.0) fl Gran % (36.0-66.0) % Eos # (Auto) (0-0.5) Absolute Lymphs (auto) (1.0-4.6) Absolute Monos (auto) (0.0-1.3) Lymphocytes % (24.0-44.0) % Monocytes % (0.0-12.0) % Eosinophils % (0.00-5.0) % Basophils % (0.0-0.4) % Absolute Granulocytes (1.4-6.9) Basophils # (0-0.4) Sodium (137-145) mmol/L Potassium (3.5-5.1) mmol/L Chloride (98-107) mmol/L Carbon Dioxide (22-30) mmol/L Anion Gap (5-15) MEQ/L BUN (7-17) mg/dL Creatinine (0.52-1.04) mg/dL Estimated GFR ML/MIN Glucose (74-106) mg/dL Calcium (8.4-10.2) mg/dL Total Bilirubin (0.2-1.3) mg/dL AST (14-36) U/L ALT (0-35) U/L Alkaline Phosphatase (38-126) U/L Troponin I < 0.012 < 0.012 (0.000-0.034) ng/mL Serum Total Protein (6.3-8.2) g/dL Albumin (3.5-5.0) g/dL Influenza Type A Ag NEGATIVE (NEGATIVE) Influenza Type B Ag NEGATIVE (NEGATIVE) RSV (PCR) NEGATIVE (Negative) SARS-CoV-2 (PCR) NEGATIVE (NEGATIVE) 08/30/20 08/31/20 08/31/20 Range/Units 22:27 04:00 04:00 WBC 5.8 (4.0-10.5) K/mm3 RBC 4.00 L (4.1-5.4) M/mm3 Hgb 12.4 (12.0-16.0) gm/dl Hct 37.7 (35-47) % MCV 94.3 (78-100) fl MCH 31.0 (26-32) pg MCHC 32.9 (32-36) g/dl RDW 12.3 (11.5-14.0) % Plt Count 260 (150-450) K/mm3 MPV 9.5 (7.5-11.0) fl Gran % 62.0 (36.0-66.0) % Eos # (Auto) 0.09 (0-0.5) Absolute Lymphs (auto) 1.43 (1.0-4.6) Absolute Monos (auto) 0.64 (0.0-1.3) Lymphocytes % 24.8 (24.0-44.0) % Monocytes % 11.1 (0.0-12.0) % Eosinophils % 1.6 (0.00-5.0) % Basophils % 0.5 (0.0-0.4) % Absolute Granulocytes 3.57 (1.4-6.9) Basophils # 0.03 (0-0.4) Sodium 135 L (137-145) mmol/L Potassium 4.3 (3.5-5.1) mmol/L Chloride 104 (98-107) mmol/L Carbon Dioxide 25 (22-30) mmol/L Anion Gap 10.4 (5-15) MEQ/L BUN 11 (7-17) mg/dL Creatinine 0.45 L (0.52-1.04) mg/dL Estimated GFR > 60.0 ML/MIN Glucose 89 (74-106) mg/dL Calcium 9.1 (8.4-10.2) mg/dL Total Bilirubin 0.50 (0.2-1.3) mg/dL AST 39 H (14-36) U/L ALT 19 (0-35) U/L Alkaline Phosphatase 74 (38-126) U/L Troponin I < 0.012 (0.000-0.034) ng/mL Serum Total Protein 6.1 L (6.3-8.2) g/dL Albumin 3.5 (3.5-5.0) g/dL Influenza Type A Ag (NEGATIVE) Influenza Type B Ag (NEGATIVE) RSV (PCR) (Negative) SARS-CoV-2 (PCR) (NEGATIVE) - Radiology Exams Ordered Rad Exams-Entire Visit: Radiology Procedures Category Date Time Status HEAD WITHOUT CONTRAST [CT] Stat Exams 08/30/20 13:21 Completed MRA BRAIN WITHOUT CONTRAST [MRI] Routine Exams 08/31/20 08:00 Completed MRI BRAIN W/O CONTRAST [MRI] Routine Exams 08/31/20 08:00 Completed MRI/MRA BRAIN WITHOUT CONTRAST Exam: MRA of the brain without IV contrast from 08/31/2020. Comparison: None. Indication: 65-year-old female with confusion, memory loss, possible TIA. Technique: Axial 3-D [id number] MRA images were obtained without IV contrast, per protocol. Reconstructed projection images were obtained as well. Findings: Both distal internal carotid arteries appear unremarkable. I see no evidence of aneurysm within the [place]. The visualized anterior cerebral and middle cerebral arteries appear unremarkable. The posterior cerebral arteries appear unremarkable. The basilar artery and major arterial vessels of the cerebellum reveal no significant abnormality. Specifically, no filling defects or obstruction is seen. Impression: 1. No significant abnormality is seen on the MRA of the brain. Specifically, the [place] and major branching arteries reveal no aneurysm or occlusion/filling defects. MRI/MRI BRAIN W/O CONTRAST Exam: MRI of the brain without IV contrast from 08/31/2020. Comparison: CT of the head without IV contrast from 08/30/2020. Indication: 65-year-old female with confusion, memory loss, possible TIA. Technique: Axial, coronal, and sagittal MRI sequences were obtained through the brain without IV contrast, per protocol. Findings: The ventricles appear of normal size without hydrocephalus. No focal mass effect or midline shift is seen. There is no evidence of intracranial hemorrhage or extra-axial fluid collection. A few scattered bilateral periventricular and subcortical foci of increased signal are seen on the T2 FLAIR images, likely due to mild chronic small vessel ischemic changes within the white matter. The diffusion weighted images reveal no focal areas of restricted diffusion to suggest an acute or subacute infarct. The cortical sulci and basilar cisterns appear within normal limits for age. The visualized paranasal sinuses and mastoids appear unremarkable. The seventh and eighth cranial nerve complexes appear grossly unremarkable. The orbits appear grossly unremarkable. Impression: 1. A few scattered bilateral periventricular and subcortical foci of increased T2 FLAIR signal are seen suggestive of chronic small vessel ischemic white matter disease. An acute or subacute infarct is not seen on the diffusion-weighted images. 2. Otherwise, the MRI of the brain without IV contrast appears essentially unremarkable. Discharge Exam General Appearance: no apparent distress, alert Neurologic Exam: alert, oriented x 3, cooperative, normal mood/affect, nml cerebellar function, sensation nml, No motor deficits Eye Exam: PERRL, EOMI, eyes nml inspection Ears, Nose, Throat Exam: normal ENT inspection, pharynx normal, moist mucous membranes Neck Exam: normal inspection, non-tender, supple, full range of motion Respiratory Exam: normal breath sounds, lungs clear, No respiratory distress Cardiovascular Exam: regular rate/rhythm, normal heart sounds Gastrointestinal/Abdomen Exam: soft, No tenderness, No mass Pelvic Exam: deferred Rectal Exam: deferred Back Exam: normal inspection, normal range of motion, No CVA tenderness, No vertebral tenderness Extremity Exam: normal inspection, normal range of motion Skin Exam: normal color, warm, dry Final Diagnosis/Problem List - Final Discharge Diagnosis/Problem (1) TIA (transient ischemic attack) Current Visit: Yes Status: Resolved Code(s): G45.9 - TRANSIENT CEREBRAL ISCHEMIC ATTACK, UNSPECIFIED (2) Hyponatremia Current Visit: Yes Status: Resolved Code(s): E87.1 - HYPO-OSMOLALITY AND HYPONATREMIA (3) Tick bite Current Visit: Yes Status: Acute Code(s): W57.XXXA - BIT/STUNG BY NONVENOM INSECT & OTH NONVENOM ARTHROPODS, INIT - Discharge Discharge Date: 08/31/20 Disposition: Home, Self-Care Condition: Stable Prescriptions: New Aspirin 81 gm Chew [Baby Aspirin 81 mg Chew] 81 mg PO DAILY #90 tab.chew Doxycycline Hyclate 100 mg [Vibramycin 100 MG] 100 mg PO BID #10 tab Continue Multivitamin 1 each PO BID Lisinopril/Hydrochlorothiazide [Lisinopril-Hctz 10-12.5 mg Tab] 1 each PO DAILY Instructions: Transient Ischemic Attack (DC) Follow up with: PASQUALE ESPINOZA MD [ACTIVE STAFF] - 7 Days
[2020-08-31] MEDS ORDERED: NON-FORMULARY ITEM (Multivitamin [Multivitamin] 1 EACH) PO SCH (22:00)
[2020-09-01] MEDS ORDERED: NON-FORMULARY ITEM (Lisinopril/Hydrochlorothiazide [Lisinopril-Hctz 10-12.5 Mg Tab] 1 EACH PO SCH (10:00)
== END 2020-08-31 16:07 | disposition home or self-care (01) ==
LOC: ED 13:11 → MED SURG 17:42
PROVIDERS: ADMIT General Practice; ATTEND General Practice
DX: G45.9 Transient cerebral ischemic attack, unspecified (principal); E87.1 Hypo-osmolality and hyponatremia; W57.XXXA Bitten or stung by nonvenomous insect and other nonvenomous arthropods, initial encounter; Z79.899 Other long term (current) drug therapy; Z20.828 Contact with and (suspected) exposure to other viral communicable diseases; I10 Essential (primary) hypertension
CPT/HCPCS: 0241U; 36000; 36415; 70450; 70544; 70551; 80053; 82947; 83735; 84484; 85025; 93005; 93041; 93268; 94760; 99285; G0378; A9270-GY